=== PATIENT | female | born 1990 | race Caucasian/White ===

== ENCOUNTER 2016-07-24 18:36 | Emergency (ER) | payer MEDICAID ==
[~2016-07-24] VITALS: Ht 170.2 cm; Wt 93.9 kg
[2016-07-24 20:58] VITALS: BP 122/75
== END 2016-07-24 20:58 | disposition home or self-care (01) ==
LOC: ED 18:36
DX: M54.41 Lumbago with sciatica, right side (principal); M54.16 Radiculopathy, lumbar region
CPT/HCPCS: J1885

== ENCOUNTER 2018-04-07 09:06 | Emergency (ER) | payer OTHER ==
[~2018-04-07] VITALS: Ht 170.2 cm; Wt 98.0 kg
[2018-04-07 09:09] VITALS: BP 119/60; Ht 170.2 cm; Wt 98.0 kg
== END 2018-04-07 11:17 | disposition home or self-care (01) ==
LOC: ED 09:06
DX: M79.662 Pain in left lower leg (principal); M79.661 Pain in right lower leg; J45.909 Unspecified asthma, uncomplicated
CPT/HCPCS: J1885